=== PATIENT | female | born 1970 | race Caucasian/White ===

== ENCOUNTER 2018-07-26 09:47 | Emergency (ER) | payer SELFPAY ==
[2018-07-26 10:35] LABS: Clarity Clear (Clear); Leukocyte Small (Negative); Nitrite Negative (Negative); Protein, Urine (Dipstick) Negative (Neg-Trace); Specific Gravity, Urine 1.004 (1.002-1.036); pH, Urine 6.5 (5.0-9.0)
[2018-07-26 10:36] LABS: Bacteria/HPF Rare-Few HPF (None Seen); Bilirubin Negative (Negative); Blood, Urine Small (Negative); Glucose, Urine (Dipstick) Negative (Negative); RBC/HPF 0-3 HPF (0-3); Squamous Epithelial 0-3 HPF (0-3); Urobilinogen 0.2 mg/dL (0.2-1.0)
[2018-07-26] MEDS ORDERED: Sulfameth/Trimethoprim DS 800-160mg TAB ONE (11:49)
--- NOTE | 2018-07-26 19:32 | CT ---
CT ABDOMEN AND PELVIS WITHOUT CONTRAST: 07/26/18 Axial slices were acquired without oral or IV contrast. The coronal reconstructions were then done. The lung bases are clear. the liver, spleen, pancreas, gallbladder, adrenal glands, kidneys, and abdo deacon aorta all appeared normal. There was no sign of ureteral stones or renal calculi. There is no o bstruction. The bowel is unremarkable. There is no dilation or thickening of bowel. No free air or free fluid was present. CT of the pelvis shows no adnexal masses, free fluid, or inflammatory change. There is a very minimal amount of streaking along the lower pole of the right kidney. This is a nonsp ecific finding, sometimes seen in pyelonephritis, but also often from an older insult. IMPRESSION: No acute abdominal or pelvic findings. POS: HOME
== END 2018-07-26 11:58 | disposition home or self-care (01) ==
LOC: BURERS 09:47
DX: N39.0 Urinary tract infection, site not specified (principal); F17.210 Nicotine dependence, cigarettes, uncomplicated
CPT/HCPCS: 74176; 81003; 81015

== ENCOUNTER 2019-01-01 00:41 | Emergency (ER) | payer SELFPAY ==
[2019-01-01 01:29] LABS: Pregnancy Test - Urine (BHCG) Negative (Negative); Pregu Control Background? CLEAR/WHITE (CLR/WHITE); Pregu Control Bar Appear? YES (CONTROL BAR); Specific Gravity 1.005 (1.002-1.036)
[2019-01-01 01:30] LABS: Bilirubin Negative (Negative); Blood, Urine Moderate (Negative); Clarity Clear (Clear); Glucose, Urine (Dipstick) Negative (Negative); Leukocyte Trace (Negative); Nitrite Negative (Negative); Protein, Urine (Dipstick) Negative (Neg-Trace); Specific Gravity, Urine 1.005 (1.002-1.036); Urobilinogen 0.2 mg/dL (0.2-1.0); pH, Urine 6.5 (5.0-9.0)
[2019-01-01 01:34] LABS: Squamous Epithelial 0-3 HPF (0-3); WBC/HPF 0-3 HPF (0-3)
[2019-01-01 01:35] LABS: Bacteria/HPF Rare-Few HPF (None Seen)
[2019-01-01 01:36] LABS: ALT (SGPT) 13 U/L (8-55); AST (SGOT) 23 U/L (5-34); Albumin 4.1 g/dL (3.5-5.0); Alkaline Phosphatase 70 U/L (40-150); Anion Gap 12 mmol/L (10-20); BUN (Urea Nitrogen) 9 mg/dL (7.0-18.7); Bilirubin, Total 0.6 mg/dL (0.2-1.2); Calc. Creatinine Clearance 0 mL/min (70-130); Calcium 9.1 mg/dL (7.8-10.44); Carbon Dioxide 26 mmol/L (22-29); Chloride 107 mmol/L (98-107); Estimated GFR-MDRD 74; Globulin 3.3 g/dL (2.4-3.5); Glucose 80 mg/dL (70-105); Potassium 3.3 mmol/L (3.5-5.1); Protein, Total 7.4 g/dL (6.0-8.3); Sodium 142 mmol/L (136-145)
[2019-01-01 01:39] LABS: #Basophils 0.1 thou/uL (0.0-0.2); #Eosinphils 0.2 thou/uL (0.0-0.7); #Lymphocytes 1.7 thou/uL (1.20-3.40); #Monocytes 0.5 thou/uL (0.11-0.59); #Neutrophils 3.5 thou/uL (1.40-6.50); %Basophils 1.7 % (0.0-1.0); %Eosinophils 3.6 % (0.0-10.0); %Lymphocytes 27.8 % (21.0-51.0); %Monocytes 7.7 % (0.0-10.0); %Neutrophils 59.2 % (42.0-75.0); Hemoglobin 12.3 g/dL (12.0-16.0); Mean Corpuscular HGB CONC 30.9 g/dL (32.0-36.0); Mean Corpuscular Hemoglobin 28.9 pg (27.0-31.0); Mean Corpuscular Volume 93.6 fL (78.0-98.0); Mean Platelet Volume 8.3 fL (7.4-10.4); Platelet Count 211 thou/uL (130-400); Red Blood Cell (RBC) Count 4.25 mill/uL (4.20-5.40); White Blood Cell (WBC) Count 5.9 thou/uL (4.8-10.8)
[2019-01-01 01:44] LABS: Amphetamine Not Detected (NotDetected); Barbiturates Screen Not Detected (NotDetected); Benzodiazepine Screen Not Detected (NotDetected); Cocaine Metabolite Screen Not Detected (NotDetected); Medtox Control Line Valid? VALID (VALID); Methadone Not Detected (NotDetected); Methamphetamine Not Detected (NotDetected); Opiate Screen Not Detected (NotDetected); Oxycodone Screen Not Detected (NotDetected); Phencyclidine (PCP) Not Detected (NotDetected); THC/Cannabinoid Screen Not Detected (NotDetected); Tricyclic Screen Not Detected (NotDetected)
[2019-01-01] MEDS ORDERED: Aspirin Chewable 81 MG TAB ONE (02:28)
--- NOTE | 2019-01-01 07:35 | RAD ---
PORTABLE CHEST: FINDINGS: An AP portable film at 0136 shows a normal-sized heart and clear lungs. No infiltrate or effusion wa s seen. There is no vascular congestion or edema. IMPRESSION: No acute thoracic findings. POS: HOME
--- NOTE | 2019-01-01 09:06 | CT ---
PRELIMINARY REPORT/[facility]/EMERGENCY AFTER HOURS PROCEDURE: EXAM: CT Head Without Contrast EXAM DATE/TIME: 01/01/2019 1:33 AM CLINICAL HISTORY: 48 years old, female; Signs and symptoms; Numbness / parasthesia; Left; Patient HX: Parasthesia lf fa ce lf arm TECHNIQUE: Imaging protocol: Axial computed tomography images of the head without contrast. Radiation optimizati on: All CT scans at this facility use at least one of these dose optimization techniques: automated e xposure control; mA and/or kV adjustment per patient size (includes targeted exams where dose is matched to clinical indication); or iterative reconstruction. COMPARISON: No relevant prior studies available. FINDINGS: Brain: Normal. No hemorrhage. Unremarkable white matter. No mass effect. Ventricles: Normal. No ventriculomegaly. Bones/joints: Unremarkable. No acute fracture. Sinuses: Visualized sinuses are unremarkable. No fluid levels. Mastoid air cells: Visualized mastoid air cells are well aerated. No mastoid effusion. Soft tissues: Unremarkable. IMPRESSION: No acute intracranial pathology. Thank you for allowing us to participate in the care of your patient. Dictated and Authenticated by: Alfredito Corona MD 01/01/2019 1:55 AM Central Time ([place] & [place]) FINAL REPORT CT BRAIN WITHOUT CONTRAST: 01/01/2019 FINDINGS: The ventricles are normal in size with no shift. No intracranial bleeding, mass, or sign of stroke i s found. No edema is seen. The calvarium appears normal. The visible paranasal sinuses and mastoid air cells are clear. IMPRESSION: No acute intracranial findings. Report in agreement with the preliminary reading by Leia. POS: HOME
== END 2019-01-01 04:37 | disposition home or self-care (01) ==
LOC: BURERS 00:41
DX: R07.9 Chest pain, unspecified (principal); R20.2 Paresthesia of skin; F17.210 Nicotine dependence, cigarettes, uncomplicated
CPT/HCPCS: 36415; 70450; 71045; 80053; 80306; 81003; 81015; 81025; 84484; 85025; 93005; 94760